=== PATIENT | female | born 1975 | race Native Hawaiian/Other Pacific Islander ===

== ENCOUNTER 2020-11-18 04:19 | Emergency (ER) | payer OTHER ==
[~2020-11-18] VITALS: Ht 165.1 cm; Wt 70.3 kg
[2020-11-18 04:25] VITALS: TEMP 98
[2020-11-18 04:53] LABS: PLATELET COUNT 253 K/uL (152-353)
[2020-11-18 05:02] LABS: POTASSIUM 4.3 mmol/L (3.6-5.2); SODIUM 139 mmol/L (136-145)
[2020-11-18 05:09] LABS: PARTIAL THROMBOPLASTIN TIME 25.2 SECONDS (24.5-33.6)
[2020-11-18 07:00] VITALS: BP 98/56
== END 2020-11-18 07:19 | disposition home or self-care (01) ==
LOC: ED 04:19
PROVIDERS: Hospitalist
DX: R42 Dizziness and giddiness (principal); E86.0 Dehydration; U07.1 COVID-19; J06.9 Acute upper respiratory infection, unspecified
CPT/HCPCS: 36415; 80053; 80320; 82550; 83880; 84484; 85027; 85610; 85730; 93005; 96360; 99284

== ENCOUNTER 2020-11-18 13:53 | Emergency (ER) | payer OTHER ==
[~2020-11-18] VITALS: Ht 165.1 cm; Wt 70.3 kg
[2020-11-18 14:38] LABS: PLATELET COUNT 243 K/uL (152-353)
[2020-11-18 14:48] LABS: POTASSIUM 3.5 mmol/L (3.6-5.2)
[2020-11-18 15:09] VITALS: BP 96/66; TEMP 97.8
== END 2020-11-18 15:15 | disposition home or self-care (01) ==
LOC: ED 13:53
PROVIDERS: Emergency Medicine
DX: R53.81 Other malaise (principal); U07.1 COVID-19
CPT/HCPCS: 80048; 85027; 99283